=== PATIENT | female | born 1965 | race Caucasian/White ===

== ENCOUNTER → 2020-10-28 | Day surgery (SDC) | payer OTHER ==
[~2020-10-28] MED LIST: CLONAZEPAM 1MG T1 MG PO; FOLIC ACID1 MG PO; PROTONIX 40MG T40 MG PO; TOPROL XL100 MG PO; TRAZODONE 50MG50 MG PO
[2020-10-28 08:02] LABS: HCT 42.7 % (37.0-47.0); HGB 14.4 g/dl (12.5-16.0); MCH 28.8 pg (25.0-31.0); MCHC 33.7 g/dL (32.0-36.0); MCV 85.4 fL (78.0-100.0); MPV 11.2 fL (6.0-9.5); RDW 13.7 % (11.5-14.0); WBC 10.2 K/uL (4.0-10.5)
[2020-10-28 08:16] LABS: ALBUMIN 4.3 g/dL (3.4-5.0); BILIRUBIN - TOTAL 0.7 mg/dL (0.2-1.0); CREATININE 0.72 mg/dL (0.51-0.95); GLOBULIN (CALCULATION) 3.3 g/dL; POTASSIUM 3.6 mmol/L (3.5-5.1); TOTAL PROTEIN 7.6 g/dL (6.4-8.2)
== END | disposition home or self-care (01) ==
LOC: FAS 07:11
PROVIDERS: Surgery
DX: K29.50 Unspecified chronic gastritis without bleeding (principal); K57.30 Diverticulosis of large intestine without perforation or abscess without bleeding; K58.9 Irritable bowel syndrome, unspecified; K21.9 Gastro-esophageal reflux disease without esophagitis; K25.9 Gastric ulcer, unspecified as acute or chronic, without hemorrhage or perforation; E78.79 Other disorders of bile acid and cholesterol metabolism; J45.909 Unspecified asthma, uncomplicated; F41.9 Anxiety disorder, unspecified; F17.210 Nicotine dependence, cigarettes, uncomplicated; Z82.49 Family history of ischemic heart disease and other diseases of the circulatory system; Z20.822 Contact with and (suspected) exposure to COVID-19; Z87.19 Personal history of other diseases of the digestive system
CPT/HCPCS: 36415; 80053; 93005; J2250; J2704; J7120; U0002